=== PATIENT | female | born 1990 | race Hispanic/Latino ===

== ENCOUNTER 2022-08-20 12:33 | Inpatient (IN) | payer OTHER ==
[~2022-08-20] VITALS: Ht 165.1 cm; Wt 86.2 kg
[2022-08-20] MEDS ORDERED: LACTATED RINGERS 1000ML 1,000 ML IV PRN (13:00)
[2022-08-20 13:17] LABS: APPEARANCE,URINE CLOUDY (CLEAR); BILIRUBIN,URINE 0.5 mg/dL (NEGATIVE); COLOR,URINE DARK-YELLOW (YELLOW); GLUCOSE, URINE (UA) 50 mg/dL (NEGATIVE); KETONES,URINE 60 mg/dL (NEGATIVE); LEUKOCYTE ESTERASE ,URINE NEGATIVE Leu/uL (NEGATIVE); NITRATE,URINE NEGATIVE (NEGATIVE); OCCULT BLOOD,URINE NEGATIVE (NEGATIVE); PROTEIN,URINE 200 mg/dL (NEGATIVE)
[2022-08-20 13:18] LABS: BASOPHILS % (AUTO) 0.2 % (0.0-5.0); EOSINOPHILS % (AUTO) 0.9 % (0.0-8.0); HEMATOCRIT 31.8 % (36-48); LYMPHOCYTES % (AUTO) 22.8 % (21.0-51.0); MEAN CORPUSCULAR HEMOGLOBIN 31.2 pg (27.0-33.0); MEAN CORPUSCULAR VOLUME 94.4 fL (79-99); MONOCYTES % (AUTO) 6.1 % (3.0-13.0); NEUTROPHILS % (AUTO) 69.6 % (40.0-77.0); PLATELET COUNT (AUTO) 135 K/uL (130-400); RED BLOOD CELL COUNT(AUTO) 3.37 MIL/uL (4.00-5.50); RED CELL DISTRIBUTION WIDTH 13.2 % (11.0-15.5); WHITE BLOOD COUNT (AUTO) 5.5 K/uL (4.8-10.8)
[2022-08-20 13:24] LABS: CREATININE 0.7 mg/dL (0.5-1.5); POTASSIUM 3.9 mmol/L (3.5-5.1)
[2022-08-20 13:26] LABS: INR 0.93 (0.85-1.15); PROTHROMBIN TIME 9.3 SEC (9.6-11.6)
[2022-08-20 13:28] LABS: ALBUMIN 2.4 g/dL (3.5-5.0); PARTIAL THROMBOPLASTIN TIME 27.3 SEC (26.3-35.5); TOTAL PROTEIN, SERUM 5.8 g/dL (6.0-8.3); URIC ACID 6.4 mg/dL (2.6-7.2)
[2022-08-20 13:40] LABS: BACTERIA,URINE MOD /HPF (None Seen); MUCUS,URINE MANY LPF (None Seen); OTHER CASTS, URINE 7 /LPF (None Seen); SQUAMOUS EPITHELIAL CELL,UR MANY /HPF (0-2)
[2022-08-20 19:45] VITALS: BP 131/87
[2022-08-20] MEDS ORDERED: CALCIUM GLUC 1GM/10ML VIAL IV PRN (22:00)
[2022-08-20] MEDS ORDERED: MAGNESIUM SULFATE 40GM/1000ML 1,000 ML IV PRN ×2 (22:00→22:30)
[2022-08-20] MEDS ORDERED: LACTATED RINGERS 1000ML 1,000 ML IV SCH (22:00)
[2022-08-20] MEDS ORDERED: MAGNESIUM 4GM PREMIX 100ML 100 ML IV PRN (22:00)
[2022-08-20] MEDS ORDERED: MAGNESIUM 4GM PREMIX 100ML 100 ML IV ONE (22:14)
[2022-08-20] MEDS ORDERED: MAGNESIUM SULFATE 40GM/1000ML 1,000 ML IV ONE (22:14)
[2022-08-20] MEDS ORDERED: PREN1TAB80 PO (23:09)
[2022-08-20] MEDS ORDERED: LEVO75CA5 PO (23:09)
[2022-08-20] MEDS ORDERED: ASPI-1197 PO (23:09)
[2022-08-21 07:03] LABS: BASOPHILS % (AUTO) 0.4 % (0.0-5.0); EOSINOPHILS % (AUTO) 1.6 % (0.0-8.0); HEMATOCRIT 30.3 % (36-48); LYMPHOCYTES % (AUTO) 28.5 % (21.0-51.0); MEAN CORPUSCULAR HEMOGLOBIN 31.4 pg (27.0-33.0); MEAN CORPUSCULAR HGB CONC 33.3 g/dL (32.0-36.0); MEAN CORPUSCULAR VOLUME 94.1 fL (79-99); MONOCYTES % (AUTO) 9.2 % (3.0-13.0); NEUTROPHILS % (AUTO) 59.8 % (40.0-77.0); PLATELET COUNT (AUTO) 120 K/uL (130-400); RED BLOOD CELL COUNT(AUTO) 3.22 MIL/uL (4.00-5.50); WHITE BLOOD COUNT (AUTO) 5.7 K/uL (4.8-10.8)
[2022-08-21 07:15] LABS: CREATININE 0.7 mg/dL (0.5-1.5); POTASSIUM 3.8 mmol/L (3.5-5.1); TOTAL PROTEIN, SERUM 5.2 g/dL (6.0-8.3); URIC ACID 6.9 mg/dL (2.6-7.2)
[2022-08-21 07:39] LABS: INR 0.93 (0.85-1.15)
[2022-08-21 07:40] LABS: PARTIAL THROMBOPLASTIN TIME 28.5 SEC (26.3-35.5)
[2022-08-21] MEDS ORDERED: CEFAZOLIN SODIUM 2 GM VIAL IVPB PRN (08:00)
[2022-08-21] MEDS ORDERED: CALDOLOR 800MG+NS 250ML 250 ML IV PRN (08:00)
[2022-08-21] MEDS ORDERED: CEFAZOLIN SODIUM 2 GM VIAL ONE (11:12)
[2022-08-21] MEDS ORDERED: OXYTOCIN 10 USP UNITS/ML ONE (11:14)
[2022-08-21] MEDS ORDERED: CEFAZOLIN SODIUM 1 GM VIAL ONE (11:14)
[2022-08-21] MEDS ORDERED: MORPHINE PF 100MG/10ML AMP IV ONE (11:15)
[2022-08-21] MEDS ORDERED: ONDANSETRON 4MG INJ ONE (11:15)
[2022-08-21] MEDS ORDERED: EPHEDRINE SULFATE 50 MG/ML AMPULE ONE (11:16)
[2022-08-21] MEDS ORDERED: MISOPROSTOL 200 MCG TABLET ONE (11:20)
[2022-08-21] MEDS ORDERED: LIDOCAINE HCL-MPF 1% 2ML VIAL ONE (12:11)
[2022-08-21] MEDS ORDERED: DiphenhydrAMINE HCL 50 MG/ML VIAL ONE (12:11)
[2022-08-21] MEDS ORDERED: MAGNESIUM SULFATE 40GM/1000ML 1,000 ML IV ONE (12:38)
[2022-08-21] MEDS ORDERED: OXYTOCIN-LR 20 UNITS/1000 ML 1,000 ML IV ONE (12:38)
[2022-08-21] MEDS ORDERED: CEFAZOLIN SODIUM 2 GM VIAL IVPB ONE (13:53)
[2022-08-21] MEDS ORDERED: OXYTOCIN-LR 20 UNITS/1000 ML 1,000 ML IV PRN (14:30)
[2022-08-21] MEDS ORDERED: LACTATED RINGERS 1000ML 1,000 ML IV SCH ×2 (14:30→22:00)
[2022-08-21] MEDS ORDERED: 0.9%NACL 10ML VIAL IVP PRN (14:30)
[2022-08-21] MEDS ORDERED: MAGNESIUM 4GM PREMIX 100ML 100 ML IV PRN (14:30)
[2022-08-21] MEDS ORDERED: DEXTROSE 5 %-0.45 % NACL 1,000 ML IV PRN (14:30)
[2022-08-21] MEDS ORDERED: CALCIUM GLUC 1GM/10ML VIAL IV PRN (14:30)
[2022-08-21] MEDS ORDERED: HYDRALAZINE 20MG/ML VIAL IV ONE (17:30)
[2022-08-21] MEDS: CALDOLOR 800MG+NS 250ML 250 ML IV SCH (19:48)
[2022-08-21] MEDS ORDERED: LABETALOL 20MG VIAL IV ONE (20:33)
[2022-08-21] MEDS: PROMETHAZINE HCL 25 MG/ML 1ML AMPULE IM PRN (20:38)
[2022-08-21] MEDS: MEPERIDINE-PF 75 MG/ML SYG IM PRN (20:39)
[2022-08-22 02:29] LABS: RAPID PLASMA REAGIN NONREACTIVE (NONREACTIVE)
[2022-08-22] MEDS: CALDOLOR 800MG+NS 250ML 250 ML IV SCH (03:25)
[2022-08-22 06:46] LABS: HEMATOCRIT 33.3 % (36-48); MEAN CORPUSCULAR HEMOGLOBIN 30.7 pg (27.0-33.0); MEAN CORPUSCULAR HGB CONC 32.1 g/dL (32.0-36.0); MEAN CORPUSCULAR VOLUME 95.4 fL (79-99); RED BLOOD CELL COUNT(AUTO) 3.49 MIL/uL (4.00-5.50); RED CELL DISTRIBUTION WIDTH 13.4 % (11.0-15.5); WHITE BLOOD COUNT (AUTO) 8.8 K/uL (4.8-10.8)
[2022-08-22] MEDS: MAGNESIUM SULFATE 40GM/1000ML 1,000 ML IV PRN (07:19)
[2022-08-22] MEDS: LABETALOL 20MG VIAL IV PRN (07:24)
[2022-08-22] MEDS: PROMETHAZINE HCL 25 MG/ML 1ML AMPULE IM PRN (07:53)
[2022-08-22] MEDS: MEPERIDINE-PF 75 MG/ML SYG IM PRN (07:54)
[2022-08-22] MEDS ORDERED: LABETALOL HCL 100 MG TABLET ONE ×2 (08:10→15:17)
[2022-08-22] MEDS ORDERED: LABETALOL HCL 100 MG TABLET PO SCH (08:30)
[2022-08-22] MEDS ORDERED: LABETALOL HCL 100 MG TABLET PO ONE (15:30)
[2022-08-22] MEDS ORDERED: IBUPROFEN 600 MG TABLET ONE (16:52)
[2022-08-22] MEDS ORDERED: BISACODYL 10 MG SUPP.RECT RC PRN (17:00)
[2022-08-22] MEDS ORDERED: LANOLIN 30GM OINTMENT TP PRN (17:00)
[2022-08-22] MEDS ORDERED: ACETAMINOPHEN WITH CODEINE 1 TAB TAB PO PRN (17:00)
[2022-08-22] MEDS: LABETALOL HCL 100 MG TABLET PO SCH (21:00)
[2022-08-22] MEDS: DOCUSATE SODIUM 100 MG CAP PO SCH (21:53)
[2022-08-23] MEDS: MAGNESIUM SULFATE 40GM/1000ML 1,000 ML IV PRN (02:26)
[2022-08-23] MEDS: HYDROCODONE/ACETAMINOPHEN 5/325 MG TAB PO PRN (06:35)
[2022-08-23] MEDS: IBUPROFEN 600 MG TABLET PO PRN ×2 (07:17→19:58)
[2022-08-23] MEDS: DOCUSATE SODIUM 100 MG CAP PO SCH ×2 (08:36→21:18)
[2022-08-23] MEDS: LABETALOL HCL 100 MG TABLET PO SCH ×2 (08:36→21:20)
[2022-08-23] MEDS: SIMETHICONE 80 MG TAB.CHEW PO PRN ×3 (08:36→21:18)
[2022-08-23] MEDS ORDERED: DIPH,PERTUSS(ACELL),TET VAC/PF 0.5 ML VIAL IM PRN (09:30)
[2022-08-23] MEDS ORDERED: 0.9%NACL 10ML VIAL IVP PRN (09:30)
[2022-08-23] MEDS ORDERED: MEASLES/MUMPS/RUBELLA VACCINE, LIVE 0.5 ML/VIAL SQ PRN (09:30)
[2022-08-23 09:50] VITALS: BP 130/80
[2022-08-23 11:45] VITALS: BP 131/70
[2022-08-23 15:30] VITALS: BP 138/92
[2022-08-23 19:20] VITALS: BP 143/97
[2022-08-23 23:16] VITALS: BP 139/94
[2022-08-24] VITALS (14 sets, daily range): BP systolic 130–168; BP diastolic 71–110
[2022-08-24] MEDS: HYDROCODONE/ACETAMINOPHEN 5/325 MG TAB PO PRN (04:09)
[2022-08-24] MEDS: LABETALOL 20MG VIAL IV PRN (05:24)
[2022-08-24] MEDS: SIMETHICONE 80 MG TAB.CHEW PO PRN ×3 (08:14→18:31)
[2022-08-24] MEDS: DOCUSATE SODIUM 100 MG CAP PO SCH ×2 (08:14→20:02)
[2022-08-24] MEDS: LABETALOL HCL 100 MG TABLET PO SCH ×2 (08:15→20:02)
[2022-08-24] MEDS: IBUPROFEN 600 MG TABLET PO PRN ×2 (08:18→18:32)
[2022-08-24] MEDS: LIDOCAINE 5% TOPICAL PATCH TP SCH (15:36)
[2022-08-24] MEDS: ACETAMINOPHEN 500 MG TABLET PO PRN (15:37)
[2022-08-25] VITALS (7 sets, daily range): BP systolic 131–157; BP diastolic 82–101
[2022-08-25 05:01] LABS: BASOPHILS % (AUTO) 0.5 % (0.0-5.0); EOSINOPHILS % (AUTO) 1.5 % (0.0-8.0); HEMATOCRIT 25.8 % (36-48); LYMPHOCYTES % (AUTO) 26.7 % (21.0-51.0); MEAN CORPUSCULAR HEMOGLOBIN 31.1 pg (27.0-33.0); MEAN CORPUSCULAR HGB CONC 31.8 g/dL (32.0-36.0); MEAN CORPUSCULAR VOLUME 97.7 fL (79-99); MONOCYTES % (AUTO) 8.6 % (3.0-13.0); NEUTROPHILS % (AUTO) 62.1 % (40.0-77.0); PLATELET COUNT (AUTO) 209 K/uL (130-400); RED BLOOD CELL COUNT(AUTO) 2.64 MIL/uL (4.00-5.50); RED CELL DISTRIBUTION WIDTH 14.4 % (11.0-15.5); WHITE BLOOD COUNT (AUTO) 6.6 K/uL (4.8-10.8)
[2022-08-25 05:16] LABS: CREATININE 0.6 mg/dL (0.5-1.5); THYROID STIMULATING HORMONE 8.41 uIU/mL (0.36-3.74); TOTAL PROTEIN, SERUM 5.2 g/dL (6.0-8.3)
[2022-08-25] MEDS: LEVOTHYROXINE 75 MCG TABLET PO SCH (06:42)
[2022-08-25] MEDS: ACETAMINOPHEN 500 MG TABLET PO PRN (06:56)
[2022-08-25] MEDS: PRENATAL VITAMIN RX TABLET PO SCH (08:30)
[2022-08-25] MEDS: LABETALOL HCL 100 MG TABLET PO SCH (08:30)
[2022-08-25] MEDS: LIDOCAINE 5% TOPICAL PATCH TP SCH (08:30)
[2022-08-25] MEDS: DOCUSATE SODIUM 100 MG CAP PO SCH ×2 (08:30→20:46)
[2022-08-25] MEDS ORDERED: NIFEDIPINE 10 MG CAP PO ONE (08:30)
[2022-08-25] MEDS: SIMETHICONE 80 MG TAB.CHEW PO PRN (08:30)
[2022-08-25] MEDS ORDERED: [UNRECOGNIZED DRUG - OTHER] PO SCH (09:00)
[2022-08-25] MEDS ORDERED: PRENATAL VITS W CA FE FA PO SCH (09:00)
[2022-08-25] MEDS: NIFEDIPINE 10 MG CAP PO PRN ×2 (09:59→17:50)
[2022-08-25] MEDS ORDERED: LABETALOL HCL 100 MG TABLET PO SCH (21:00)
[2022-08-26 04:14] VITALS: BP 145/96
[2022-08-26 05:50] LABS: BASOPHILS % (AUTO) 0.5 % (0.0-5.0); EOSINOPHILS % (AUTO) 2.1 % (0.0-8.0); HEMATOCRIT 26.4 % (36-48); MEAN CORPUSCULAR HEMOGLOBIN 31.5 pg (27.0-33.0); MEAN CORPUSCULAR HGB CONC 32.2 g/dL (32.0-36.0); MEAN CORPUSCULAR VOLUME 97.8 fL (79-99); MONOCYTES % (AUTO) 8.3 % (3.0-13.0); NEUTROPHILS % (AUTO) 63.6 % (40.0-77.0); PLATELET COUNT (AUTO) 262 K/uL (130-400); RED CELL DISTRIBUTION WIDTH 14.4 % (11.0-15.5); WHITE BLOOD COUNT (AUTO) 6.3 K/uL (4.8-10.8)
[2022-08-26 05:53] LABS: APPEARANCE,URINE CLEAR (CLEAR); BILIRUBIN,URINE NEGATIVE (NEGATIVE); COLOR,URINE COLORLESS (YELLOW); GLUCOSE, URINE (UA) NEGATIVE (NEGATIVE); KETONES,URINE 5 mg/dL (NEGATIVE); LEUKOCYTE ESTERASE ,URINE NEGATIVE Leu/uL (NEGATIVE); NITRATE,URINE NEGATIVE (NEGATIVE); OCCULT BLOOD,URINE LARGE (NEGATIVE); PH,URINE 7.5 (5.0-8.0); PROTEIN,URINE 30 mg/dL (NEGATIVE); UROBILINOGEN,URINE 0.2 mg/dL (0.2-1.0)
[2022-08-26 05:56] LABS: MUCUS,URINE RARE LPF (None Seen); SQUAMOUS EPITHELIAL CELL,UR RARE /HPF (0-2)
[2022-08-26 05:58] LABS: CREATININE 0.6 mg/dL (0.5-1.5)
[2022-08-26] MEDS: LEVOTHYROXINE 75 MCG TABLET PO SCH ×2 (06:30→06:31)
[2022-08-26 08:26] VITALS: BP 144/105
[2022-08-26] MEDS ORDERED: NIFEDIPINE ER 30 MG TAB PO SCH ×2 (09:00)
[2022-08-26 09:07] VITALS: BP 149/97
[2022-08-26] MEDS: DOCUSATE SODIUM 100 MG CAP PO SCH (09:15)
[2022-08-26] MEDS: LIDOCAINE 5% TOPICAL PATCH TP SCH (09:15)
[2022-08-26] MEDS: PRENATAL VITAMIN RX TABLET PO SCH (09:15)
[2022-08-26] MEDS ORDERED: LISINOPRIL 40 MG TABLET PO SCH (09:30)
[2022-08-26 11:25] VITALS: BP 148/103
[2022-08-26] MEDS ORDERED: ZOLPIDEM TARTRATE 5 MG TAB PO PRN (12:00)
[2022-08-26 14:00] VITALS: BP 146/95
[2022-08-26 16:46] VITALS: BP 144/89
[2022-08-26] MEDS ORDERED: NIFE-40 PO (16:59)
[2022-08-26] MEDS ORDERED: LABE200T7 PO (17:00)
[2022-08-26] MEDS ORDERED: IBUP-2077 PO (17:00)
[2022-08-26] MEDS ORDERED: ACET-2079 PO (17:01)
[2022-08-26] MEDS ORDERED: DOCU-116 PO (17:01)
== END 2022-08-26 19:20 | disposition home or self-care (01) | DRG 788 ==
LOC: INTOOBSV 12:33 → LDH 12:33 → OBSVTOIN 12:33 → LDH 18:13 → WSH 08-23 09:50
PROVIDERS: ADMIT Obstetrics & Gynecology; ATTEND Obstetrics & Gynecology
PROC: 10D00Z1 Extraction of Products of Conception, Low, Open Approach (ICD-10-PCS; principal; 2022-08-21 11:27)
DX: O30.003 Twin pregnancy, unspecified number of placenta and unspecified number of amniotic sacs, third trimester (principal); O14.04 Mild to moderate pre-eclampsia, complicating childbirth; O99.284 Endocrine, nutritional and metabolic diseases complicating childbirth; O13.4 Gestational [pregnancy-induced] hypertension without significant proteinuria, complicating childbirth; Z3A.35 35 weeks gestation of pregnancy; Z37.2 Twins, both liveborn
CPT/HCPCS: 36415; 59510; 80048; 80053; 81001; 84443; 84550; 85025; 85027; 85384; 85610; 85730; 86592; 86701; 86850; 86900; 86901; 87088; 87340; 87390; A4344; G0378; J0690; J1200; J1741; J2175; J2274; J2405; J2550; J2590; J3475; J3490; J7120